=== PATIENT | male | born 1980 | race Two or more races ===

== ENCOUNTER → 2024-09-12 | Outpatient (CLI) | payer BC, SELFPAY ==
[2024-09-12 14:44] LABS: Basophils # (Auto) 0.1 Thou/mm3 (0.0-0.2); Basophils % (Auto) 1 % (0-2.5); Eosinophils # (Auto) 0.1 Thou/mm3 (0.0-0.5); Eosinophils % (Auto) 1 % (0-10); Hematocrit 33.6 % (41.0-53.0); Immature Granulocytes % (Auto) 0 % (0-0); Immature Granulocytes Auto 0.02 Thou/mm3 (0.00-0.00); Lymphocytes # (Auto) 1.5 Thou/mm3 (1.0-4.8); Lymphocytes % (Auto) 19 % (10-50); Mean Corpuscular HGB Conc 29.8 g/dl (31.0-37.0); Mean Corpuscular Hemoglobin 20.6 pg (25.0-35.0); Mean Corpuscular Volume 69 fL (80-100); Monocytes # (Auto) 0.7 Thou/mm3 (0.0-0.8); Monocytes % (Auto) 9 % (0-12); Neutrophils # (Auto) 5.3 Thou/mm3 (1.8-7.7); Neutrophils % (Auto) 69 % (37-80); Nucleated Red Blood Cell % 0 /100 WBC (0); Platelet Count 484 Thou/mm3 (140-440); RDW Standard Deviation 53.8 fL (35.1-43.9); Red Blood Count 4.85 Miln/mm3 (4.50-5.90); White Blood Count 7.7 Thou/mm3 (3.8-10.6)
[2024-09-12 14:55] LABS: Alanine Aminotransferase 18 U/L (10-49); Albumin, Serum 4.8 gm/dL (3.5-5.0); Albumin/Globulin Ratio 2.1 (1.2-2.2); Alkaline Phosphatase 46 U/L (46-116); Amylase 25 U/L (30-118); Anion Gap 8 (7-16); Aspartate Amino Transferase 17 U/L (0-34); BUN/Creatinine Ratio 17 Ratio (12-20); Bilirubin,Total 0.5 mg/dL (0.3-1.2); Blood Urea Nitrogen 19 mg/dL (9-23); Calcium 9.8 mg/dL (8.3-10.6); Calcium (Corrected) 9.8 mg/dL (8.5-10.1); Carbon Dioxide 30.5 mMol/L (20.0-31.0); Chloride 100 mMol/L (98-107); Creatinine (Component) 1.1 mg/dL (0.6-1.3); Globulin 2.3 gm/dL (2.3-3.5); Glucose 115 mg/dL (74-106); Lipase 33 U/L (12-53); Osmolality,Calculated 278 (275-295); Potassium 3.7 mMol/L (3.4-5.1); Sodium 138 mMol/L (136-145); Total Protein 7.1 gm/dL (5.7-8.2); eGFR > 60 See Note
[2024-09-12 15:29] LABS: Ferritin 3 ng/mL (10.5-307.3)
[2024-09-12 15:40] LABS: Iron 16 mcg/dL (65-175)
== END | disposition home or self-care (01) ==
LOC: COPL 13:47
PROVIDERS: PCP Physician Assistant; Referring Provider Physician Assistant; Visit Provider Physician Assistant
DX: R10.9 Unspecified abdominal pain (principal); K92.0 Hematemesis; K21.9 Gastro-esophageal reflux disease without esophagitis; D50.9 Iron deficiency anemia, unspecified
CPT/HCPCS: 36415; 80053; 82150; 82728; 83013; 83014; 83540; 83690; 85025

== ENCOUNTER → 2024-09-15 | Outpatient (CLI) | payer BC, SELFPAY ==
[2024-09-15 17:59] LABS: Urea Breath Test Positive (Negative)
== END | disposition home or self-care (01) ==
LOC: COPL 14:58
PROVIDERS: PCP Physician Assistant; Referring Provider Physician Assistant; Visit Provider Physician Assistant
DX: R10.9 Unspecified abdominal pain (principal); K92.0 Hematemesis; K21.9 Gastro-esophageal reflux disease without esophagitis; D50.9 Iron deficiency anemia, unspecified
CPT/HCPCS: 83013; 83014

== ENCOUNTER → 2024-09-15 | Outpatient (CLI) | payer BC, SELFPAY ==
--- NOTE | 2024-09-15 16:00 | XR_ITS ---
Examination: CT abdomen and pelvis without contrast. Coronal 3-D reconstructions. Sagittal 2-D reconstructions. Date and time of exam:September 15, 2024 1555 hrs. Indications: Right upper abdominal pain beginning one month ago CTDI: vol (mGy): 10.4 DLP: (mGycm): 658 Technique: Axial images of the abdomen have been obtained, 3 mm slice thickness Intravenous contrast material has not been administered. Low dose protocols were performed. One or more of the following dose reduction techniques were used; automated exposure control, adjustment of the mA and/or KV according to patient size, use of iterative reconstruction technique. Findings: Diffuse fatty infiltration throughout the liver Contracted gallbladder Spleen pancreas are not enlarged Mucosal thickening in the stomach Bilateral 1 to 3 mm renal calculi, no hydronephrosis or ureteral calculi Normal appendix 10 mm fat-containing umbilical hernia No bowel obstruction Sigmoid colon sutures Urinary bladder intact No prostatomegaly Fat-containing left inguinal hernia Advanced degenerative disc disease L5-S1 Impression: Gastritis pattern Bilateral nonobstructing renal calculi Normal appendix No bowel obstruction
== END | disposition home or self-care (01) ==
LOC: CCTX 15:43
PROVIDERS: PCP Physician Assistant; Referring Provider Physician Assistant; Visit Provider Physician Assistant
DX: N20.0 Calculus of kidney (principal)
CPT/HCPCS: 74176

== ENCOUNTER 2024-11-11 10:40 | Observation (INO) | payer BC, SELFPAY ==
[2024-11-11] VITALS (11 sets, daily range): BP systolic 126–176; BP diastolic 78–123; PULSE 71–114; RESP 16–97; TEMP 36.2–37.1; O2SAT 95–98; BMI 36.4; BMI 36.7
--- NOTE | 2024-11-11 | XR_ITS ---
Examinations: MRI Brain without intravenous contrast. MRA brain without intravenous contrast. MRA carotids without intravenous contrast 3-D vascular reconstructions Date and time of exam: November 11, 2024 1423 hours INDICATIONS: Stroke alert today, onset focal neurologic deficit including dizziness blurred vision unsteady gait Technique: Multiple axial and sagittal images of the brain have been obtained MRA brain carotid images without contrast obtained, including 3-D postprocessing, vascular maximum intensity projection images Findings: Sellaturcica is not enlarged. The optic chiasm and infundibular stalk are not remarkable. Prepontine and interpeduncular cisterns are not enlarged. No localized enlargement of the medulla or tima. Fourth ventricle and cerebellar tonsils normal in position. Subacute hemorrhage is not seen. Fourth ventricle is midline. Mass in the cerebellopontine angle region is not evident. 7th and 8th nerve complexes exhibits symmetry. Globes are symmetrical with no retro-orbital mass. Increased white matter signal not seen Prominent mastoiditis Significant right maxillary sinusitis Diffusion-weighted images demonstrate no focus of restricted diffusion Mass-effect upon the ventricular system is not identified. MRA carotid images degraded by patient motion. MRA brain images no large vessel occlusions Impression: Negative for acute hemorrhage mass effect or midline shift No acute infarct No MR findings diagnostic for demyelinating disease No large vessel occlusions
--- NOTE | 2024-11-11 11:05 | XR_ITS ---
Examination: CTA carotids with intravenous contrast CTA brain, head with intravenous contrast. 2-D sagittal, coronal reconstructions. 3-D reconstructions. Exam date and time: November 11, 1999 2517 hours INDICATIONS: Stroke alert, onset focal neurologic deficit beginning 6:00 AM this morning CTDI: vol (mGy) 40.7 DLP: (mGycm) 490 Technique: Multiple CTA axial brain, head carotid images post intravenous contrast injection 75 cc, [id number]. 2-D sagittal, coronal reconstructions. 3-D reconstructions, 3-D post processing including vascular maximum intensity projection images. Low dose protocols were performed. One or more of the following dose reduction techniques were used; automated exposure control, adjustment of the mA and/or KV according to patient size, use of iterative reconstruction technique. Findings: No significant common carotid carotid bifurcation or internal carotid artery stenoses Dominant left vertebral artery, quite small right vertebral artery no critical stenoses in the neck No cerebral large vessel arterial occlusions or thrombus IMPRESSION: No significant neck arterial stenoses No cerebral large vessel arterial occlusions or thrombus
--- NOTE | 2024-11-11 11:05 | XR_ITS ---
Examination: CT brain head without contrast. 2-D sagittal coronal reconstructions Date and time of exam:November 11, 2024 1108 hours INDICATIONS: Stroke alert, onset focal neurologic deficit, dizziness blurred vision today CTDI: vol (mGy):55.1 DLP: (mGycm):1158 Technique: Multiple CT axial sections of the brain have been obtained, 5 mm slice thickness. Contrast has not been administered. 2-D sagittal, coronal reconstructions have been obtained Low dose protocols were performed. One or more of the following dose reduction techniques were used; automated exposure control, adjustment of the mA and/or KV according to patient size, use of iterative reconstruction technique. Findings: No significant ventricular enlargement. Intra-axial or extra-axial hemorrhage density is not seen. No mass effect or midline shift Basal cisterns are not remarkable. Fourth ventricle is midline. Cranial vault intact. Right maxillary sinusitis as Impression: Negative for acute hemorrhage, mass effect or midline shift
--- NOTE | 2024-11-11 11:05 | EKG_ITS ---
[facility] Test Date: 2024-11-11 Pat Name: AINSLEY RUIZ Department: Room: - Gender: Male [employer]: : 1980 Requested By: Jonny Villatoro Order Number: [id number] Reading MD: Jonny Villatoro Measurements Intervals [place] Rate: 96 P: 20 AL: 167 QRS: 8 QRSD: 91 T: 30 QT: 349 QTc: 442 Interpretive Statements SINUS RHYTHM No previous ECG available for comparison /store/S0/[id number]/ecg/[id number].pdf
--- NOTE | 2024-11-11 11:09 | EDNOTE_ITS ---
ED General RME/HPI General Chief complaint: Dizziness Stated complaint: Dizzy, light headed X 3 hours Time Seen by Provider: 11/11/24 11:05 Arrival date/time: 11/11/24 10:40 CC: Facial [id number] gait disturbance HPI onset at 6 AM, after he eating toast and a couple coffee while at work patient abrupt onset of complete facial numbness with pins and needle sensation. Then getting out of a vehicle at work, noticed that he had balance issues. Denies fall, states that all of the symptoms have since resolved with the exception of [id number] sensation around the mouth. Patient has a history of hypertension denies diabetes no prior history of similar events. He is awake alert oriented last known normal at 6 AM. Related Data Previous Rx's ?Medication ?Instructions ?Recorded ibuprofen 800 mg tablet 800 mg PO TID PRN pain #14 t abs 04/27/18 Allergies Allergy/AdvReac Type Severity Reaction Status Date / Time No Known Allergies Allergy Verified 11/11/24 10:44 Review of Systems Review of Systems Narrative Review of Systems: GEN: No fever, no chills, no weight loss EYES: No discharge, no visual changes, no pain HEENT: No ear pain, no congestion, no sore throat PULM: No shortness of breath, no cough, no congestion CV: No chest pain, no dyspnea on exertion, no palpitations GI: No nausea, no vomiting, no diarrhea, no pain, no constipation : No frequency, no urgency, no dysuria MUSC/SKEL: No joint pain, no back pain SKIN: No rash PSYCH: No hallucinations, no depression HEME/LYMPH: No easy bleeding or bruising tendencies NEURO: No weakness, no headache Past Medical History Past Medical History CARDIAC: Negative Congestive Heart Failure RESPIRATORY: Negative Chronic Obstructive Pulmonary Disease (COPD) GENITOURINARY: Negative Renal Disease ENDOCRINE: Negative Diabetes Mellitus Type 1 or Diabetes Mellitus Type 2 Social History SMOKING STATUS: Never smoker ED Exam Narrative Physical exam: [General: Appears not in any acute distress Head normocephalic HEENT: Eyes: Pupils are PERRLA EOMs are intact mouth pink moist membranes uvula is midline swallow symmetrical phonation is normal. All other subsystems of HEENT are within acceptable limits Neck is supple nontender, no JVD no edema Chest equal chest rise nontender to palpation Respiratory: Clear to auscultation no wheezes crackles or rubs CV: Rate rhythm is regular no murmurs rubs or clicks Abdomen is soft nontender no masses positive bowel sounds all 4 quadrants Back: No CVA tenderness no spinous process tenderness from cervical spine thoracic and lumbar spine Skin: Intact no petechiae rash induration ulceration or crepitus Extremities: Moving all extremity against resistance cap refill less than 2 seconds neurosensory intact Neuro: Awake alert oriented x3 Glascow coma 15 no focal deficits] cranial nerves II through XII are grossly intact. Course Quality Measures none Orders Category Date Time Status Bedside Blood Glucose NOW Care 11/11/24 11:05 Completed Tank Hoop Bender NOW Care 11/11/24 11:05 Active Continuous Pulse Oximetry NOW Care 11/11/24 11:05 Completed EKG (ED ONLY) *Do not use* NOW Care 11/11/24 11:05 Completed In and Out Catheter NEEDED Care 11/11/24 11:05 Active Insert IV NOW Care 11/11/24 11:05 Active NIH Stroke Scale now Care 11/11/24 11:05 Active NPO NOW Care 11/11/24 11:05 Active Nurse Swallow Screen x1 Care 11/11/24 11:05 Active Saline [Insert IV] NOW Care 11/11/24 11:11 Completed Consult to Neurology / Tele-Neurology Routine Cons 11/11/24 11:[address] angio stroke protocol Stat Exams 11/11/24 11:[address] stroke protocol Stat Exams 11/11/24 11:05 Completed EKG (ED Only) Stat Exams 11/11/24 11:05 Draft CBC Stat Lab 11/11/24 11:10 Completed Comprehensive Metabolic Panel Stat Lab 11/11/24 11:10 Completed Drug Screen,Urine Stat Lab 11/11/24 11:05 Ordered HCG Titer if Positive Stat Lab 11/11/24 11:10 Completed Magnesium Stat Lab 11/11/24 11:10 Completed Partial Thromboplastin Time Stat Lab 11/11/24 11:10 Completed Prothrombin Time with INR Stat Lab 11/11/24 11:10 Completed Troponin I Stat Lab 11/11/24 11:10 Completed Urinalysis Stat Lab 11/11/24 11:05 Ordered Urine Culture Stat Lab 11/11/24 11:05 Ordered Aspirin Med 11/11/24 12:23 Discontinued 325 mg PO X1 ONE Ondansetron Inj [Zofran Inj] Med 11/11/24 11:05 Active 4 mg IV Q4HR PRN hydrALAZINE INJ [Apresoline Inj] Med 11/11/24 11:31 Discontinued 10 mg IV X1 ONE hydrALAZINE INJ [Apresoline Inj] Med 11/11/24 11:11 Discontinued 20 mg IV X1 ONE Oxygen Delivery NOW RT 11/11/24 11:05 Completed Vital Signs Vital signs: Vital Signs Temperature 98.3 F 11/11/24 10:50 Pulse Rate 114 H 11/11/24 10:50 Respiratory Rate 20 11/11/24 10:50 Blood Pressure 170/105 H 11/11/24 10:50 Pulse Oximetry (%) 98 11/11/24 10:50 Oxygen Delivery Method Room Air 11/11/24 10:50 [facility] Patient data External records reviewed:: [facility] previous records Clinical information provided by:: patient Social determinants that could affect healthcare access:: none Patient has the following chronic illnesses:: Hypertension How is presenting disease/condition affected by chronic disease/condition?: u neffected by Evaluation data The following diagnostics were reviewed and interpreted by me:: lab results, radiology exam(s) and EKG tracing(s) Lab and/or radiology exams considered but not ordered:: EKG performed to 1210 that shows ventricular rate of 9 6 TN interval 167 QRS of 91 QTc of 402 is normal sinus rhythm. CBC shows a leukocytosis of 26,000 and H&H of 10.6 and 35.4 respectively platelets at 462 CMP shows no significant electrolyte imbalances renal impairment glucose level mildly elevated at 127 no transaminitis or T. bili elevation. CT head is negative CTA head is negative for any acute finding. Interpretation Summary: Patient's case discussed with teleneurology patient needs a further workup including MRI/MRA. Patient's case discussed with Dr. Rickey Stacy resident for Dr. Valencia who agrees to accept the patient for admission. Medications Medications considered but not ordered:: None Medication administrations:: Medication Administration History Ondansetron HCl (Ondansetron Inj 2 Mg/Ml Inj 2 Ml) 4 mg IV Q4HR PRN PRN Reason: NAUSEA OR VOMITING Stop: 12/11/24 11:04 Last Admin: 11/11/24 11:35 Dose: 4 mg Documented By: KM Discontinued Medications Aspirin (Aspirin 325 Mg Tablet) 325 mg PO X1 ONE Stop: 11/11/24 12:24 Hydralazine HCl (Hydralazine Inj 20 Mg/Ml Vial) 20 mg IV X1 ONE Stop: 11/11/24 11:12 Last Admin: 11/11/24 11:37 Dose: Not Given Documented By: KAVEH Non-Admin Reason: Duplicate Medication on eMAR Hydralazine HCl (Hydralazine Inj 20 Mg/Ml Vial) 10 mg IV X1 ONE Stop: 11/11/24 11:32 Last Admin: 11/11/24 11:37 Dose: 10 mg Documented By: KAVEH None Consultations Consultation(s) initiated? (list below): Yes Diagnosis Differential Diagnosis ED Complaint MDM: CVA TIA hypertensive emergency Most likely diagnosis given after review of the tests above:: CVA Admission Indicated Admission indicated?: indicated Explain why admission is indicated or not indicated:: Further medical management Admission Request Was there a request for admission?: No Disposition Plan Disposition Plan: Admit Medical Decision Making Differential Diagnosis Differential Diagnosis: CVA TIA hypertensive emergency Lab Data 11/11/24 11:10 11/11/24 11:10 Labs: Lab Results 11/11/24 Range/Units 11:10 WBC 26.4 H (3.8-10.6) Thou/mm3 RBC 5.02 (4.50-5.90) Miln/mm3 Hgb 10.6 L (13.5-16.0) g/dL Hct 35.4 L (41.0-53.0) % MCV 71 L (80-100) fL MCH 21.1 L (25.0-35.0) pg MCHC 29.9 L (31.0-37.0) g/dl RDW Std Deviation 46.5 H (35.1-43.9) fL Plt Count 462 H (140-440) Thou/mm3 Neut % (Auto) 90 H (37-80) % Lymph % (Auto) 3 L (10-50) % [place] % (Auto) 6 (0-12) % Eos % (Auto) 1 (0-10) % Baso % (Auto) 0 (0-2.5) % Neut # (Auto) 23.7 H (1.8-7.7) Thou/mm3 Lymph # (Auto) 0.7 L (1.0-4.8) Thou/mm3 [place] # (Auto) 1.6 H (0.0-0.8) Thou/mm3 Eos # (Auto) 0.2 (0.0-0.5) Thou/mm3 Baso # (Auto) 0.1 (0.0-0.2) Thou/mm3 Immature Gran # (Auto) 0.16 H (0.00-0.00) Thou/mm3 Absolute Nucleated RBC 0.00 (0.00-0.00) Thou/mm3 Immature Gran % 1 H (0-0) % Nucleated RBC % 0 (0) /100 WBC PT 10.4 (9.0-12.2) Seconds INR 0.9 (0.9-1.3) APTT 26.8 (22.0-36.0) Seconds Sodium 137 (136-145) mMol/L Potassium 4.2 (3.4-5.1) mMol/L Chloride 102 (98-107) mMol/L Carbon Dioxide 24.7 (20.0-31.0) mMol/L Anion Gap 10 (7-16) BUN 17 (9-23) mg/dL Creatinine 0.8 (0.6-1.3) mg/dL Estim Creat Clear Calc 147.3 (>60) mL/min eGFR > 60 (60 - ) See Note BUN/Creatinine Ratio 21 H (12-20) Ratio Glucose 127 H (74-106) mg/dL Calculated Osmolality 277 (275-295) Calcium 9.0 (8.3-10.6) mg/dL Corrected Calcium 9.0 (8.5-10.1) mg/dL Magnesium 2.0 (1.6-2.6) mg/dL Total Bilirubin 0.3 (0.3-1.2) mg/dL AST 16 (0-34) U/L ALT 15 (10-49) U/L Alkaline Phosphatase 46 (46-116) U/L Troponin I < 0.002 (0.0-0.045) ng/mL Total Protein 7.4 (5.7-8.2) gm/dL Albumin 4.7 (3.5-5.0) gm/dL Globulin 2.7 (2.3-3.5) gm/dL Albumin/Globulin Ratio 1.7 (1.2-2.2) HCG (Qual) Negative Discharge Plan Plan Patient Disposition: Other Care w/in Hosp ([facility]) Prescriptions/Referrals Prescriptions/Med Rec: No Action ibuprofen 800 mg tablet 800 mg PO TID PRN (Reason: pain) Qty: 14 0RF Problem List Clinical Impression: CVA (cerebrovascular accident) Patient/Caregiver Discharge Instructions Print Language: Albanian Stand Alone Forms: Paty Award Info., Patient Portal Info Letter PA/LOG SCALER Supervising Physician PA/LOG SCALER Supervising Physician: Jonny Tanner ENP
[2024-11-11 11:22] LABS: Basophils # (Auto) 0.1 Thou/mm3 (0.0-0.2); Basophils % (Auto) 0 % (0-2.5); Eosinophils # (Auto) 0.2 Thou/mm3 (0.0-0.5); Eosinophils % (Auto) 1 % (0-10); Hematocrit 35.4 % (41.0-53.0); Hemoglobin 10.6 g/dL (13.5-16.0); Immature Granulocytes % (Auto) 1 % (0-0); Immature Granulocytes Auto 0.16 Thou/mm3 (0.00-0.00); Lymphocytes # (Auto) 0.7 Thou/mm3 (1.0-4.8); Lymphocytes % (Auto) 3 % (10-50); Mean Corpuscular HGB Conc 29.9 g/dl (31.0-37.0); Mean Corpuscular Hemoglobin 21.1 pg (25.0-35.0); Mean Corpuscular Volume 71 fL (80-100); Monocytes # (Auto) 1.6 Thou/mm3 (0.0-0.8); Monocytes % (Auto) 6 % (0-12); Neutrophils # (Auto) 23.7 Thou/mm3 (1.8-7.7); Neutrophils % (Auto) 90 % (37-80); Nucleated Red Blood Cell % 0 /100 WBC (0); Platelet Count 462 Thou/mm3 (140-440); RDW Standard Deviation 46.5 fL (35.1-43.9); Red Blood Count 5.02 Miln/mm3 (4.50-5.90); White Blood Count 26.4 Thou/mm3 (3.8-10.6)
--- NOTE | 2024-11-11 11:25 | PC.NURSE ---
Patient back from ct and hooked up to cm, patient alert and oriented x 3, speech clear, moving all extremities.
--- NOTE | 2024-11-11 11:29 | PC.NURSE ---
Dr. Dowell, teleneurologist evaluating patient.
[2024-11-11] MEDS: ONDANSETRON INJ 2 MG/ML INJ 2 ML 4 MG IV (11:35)
--- NOTE | 2024-11-11 11:35 | PC.NURSE ---
informed Dr. Aceves, provider ordered hydralizine 20mg iv x 1, Per. Dr. Aceves only give 10mg hydralazine x 1.
[2024-11-11] MEDS: hydrALAZINE INJ 20 MG/ML VIAL 10 MG IV (11:37)
[2024-11-11 11:38] LABS: Alanine Aminotransferase 15 U/L (10-49); Albumin, Serum 4.7 gm/dL (3.5-5.0); Albumin/Globulin Ratio 1.7 (1.2-2.2); Alkaline Phosphatase 46 U/L (46-116); Anion Gap 10 (7-16); Aspartate Amino Transferase 16 U/L (0-34); BUN/Creatinine Ratio 21 Ratio (12-20); Bilirubin,Total 0.3 mg/dL (0.3-1.2); Blood Urea Nitrogen 17 mg/dL (9-23); Carbon Dioxide 24.7 mMol/L (20.0-31.0); Chloride 102 mMol/L (98-107); Creatinine (Component) 0.8 mg/dL (0.6-1.3); Estimated Creatinine Clearance 147.3 mL/min (>60); Globulin 2.7 gm/dL (2.3-3.5); Glucose 127 mg/dL (74-106); Osmolality,Calculated 277 (275-295); Potassium 4.2 mMol/L (3.4-5.1); Sodium 137 mMol/L (136-145); Total Protein 7.4 gm/dL (5.7-8.2); Troponin I < 0.002 ng/mL (0.0-0.045); eGFR > 60 See Note
[2024-11-11 11:40] LABS: INR 0.9 (0.9-1.3); Partial Thromboplastin Time 26.8 Seconds (22.0-36.0); Prothrombin Time 10.4 Seconds (9.0-12.2)
--- NOTE | 2024-11-11 11:40 | PC.NURSE ---
Per Dr. Paez, teleneurologist patient not a candidate for Tenecteplace administration. Patient updated on plan of care, daughter at bedside, patient has no other needs at this time.
--- NOTE | 2024-11-11 11:54 | PD.TNEURO ---
Tele Neuro Consultation Consultation Date 11/11/24 Most Recent Vital Signs Last Vital Signs Temp 98.3 F 11/11/24 10:50 Pulse 106 H 11/11/24 11:38 Resp 20 11/11/24 10:50 BP 163/123 H 11/11/24 11:37 Pulse Ox 98 11/11/24 10:50 O2 Del Method Room Air 11/11/24 10:50 Laboratory-Coagulation Panel PT 10.4 Seconds (9.0-12.2) 11/11/24 11:10 INR 0.9 (0.9-1.3) 11/11/24 11:10 APTT 26.8 Seconds (22.0-36.0) 11/11/24 11:10 Consultation Narrative [facility] Tele[facility]urology Consult Services Patient Name:???[place] Date of :???1980 Identification Number:??? Date of Service:???11/11/2024 11:12:52 Diagnosis:?I63.89 - Cerebrovascular accident (CVA) due to other mechanism (HCCC) Impression: ?Hypertensive encephalopathy vs posterior circulation infarct/TIA. Symptoms have now improved. Stat NCCT and CTA H&N without acute changes, lvo or thormbus. Recommend further evaluation with MRI brain. Asa 325 mg if Hgb is >10. Our recommendations are outlined below. Recommendations: ? Stroke/Telemetry Floor ? Neuro Checks ? Bedside Swallow Eval ? DVT Prophylaxis ? IV Fluids, Normal Saline ? Head of Bed 30 Degrees ? Euglycemia and Avoid Hyperthermia (PRN Acetaminophen) Sign Out: ? Discussed with Emergency Department Provider Advanced Imaging:CTA Head and Neck Completed. LVO:No Patient in not a candidate for CARLITOS Metrics: Last Known Well: 11/11/2024 06:00:00 Dispatch Time: 11/11/2024 11:12:52 Arrival Time: 11/11/2024 10:40:00 Initial Response Time: 11/11/2024 11:14:25Symptoms: cross eyed, dizziness, gait instability, lightheaded, emesis 6 am - vision blurry, cross eyed, not bin normal since, dizzy, . Initial patient interaction: 11/11/2024 11:22:27 NIHSS Assessment Completed: 11/11/2024 11:29:31Plyndsey is not a candidate for Thrombolytic. Thrombolytic Medical Decision: 11/11/2024 11:29:32Plyndsey was not deemed candidate for Thrombolytic because of following reasons: LKW outside 4.5 hr window. . I personally Reviewed the CT Head and it Showed no acute change. Primary Provider Notified of Diagnostic Impression and Management Plan on: 11/11/2024 11:44:49 History of Present Illness:Patient is a 44 year old Male. Patient was brought by private transportation with symptoms of cross eyed, dizziness, gait instability, lightheaded, emesis 6 am - vision blurry, cross eyed, not bin normal since, dizzy, . This is a 44 year old right handed man who presents for after acute onset of several complaints this morning. He woke up around 1:45 am to go to work this morning. He arrived at work without difficulty. At 6 am he went cross-eyed, and felt lightheaded with gait instability. His face started to tingle shortly afterward. Around 8 am he walked to his truck had an unsteady walk prompting him to seek medical attention. He had several bouts of emesis including one in the CT scanner. No prior history of similar complaints. Most of his symptoms have resolved now. History of blood in his stool last year with severe anemia requiring a transfusion. Hgb dropped to 6.2. ? Past Medical History: ?There is no history of Hypertension ?There is no history of Diabetes Mellitus ?There is no history of Stroke Medications: No Anticoagulant use? No Antiplatelet use Reviewed EMR for current medications Allergies:? Reviewed Social History: Drug Use: No Family History: There is no family history of premature cerebrovascular disease pertinent to this consultation ROS : 14 Points Review of Systems was performed and was negative except mentioned in HPI. Past Surgical History: There Is No Surgical History Contributory To Today?s Visit ? Examination: BP(174/114),?Pulse(114),?Blood Glucose(155) 1A: Level of Consciousness - Alert; keenly responsive?+ 0 1B: Ask Month and Age - Both Questions Right?+ 0 1C: Blink Eyes & Squeeze Hands - Performs Both Tasks?+ 0 2: Test Horizontal Extraocular Movements - Normal?+ 0 3: Test Visual Marquez - No Visual Loss?+ 0 4: Test Facial Palsy (Use Grimace if Obtunded) - Normal symmetry?+ 0 5A: Test Left Arm Motor Drift - No Drift for 10 Seconds?+ 0 5B: Test Right Arm Motor Drift - No Drift for 10 Seconds?+ 0 6A: Test Left Leg Motor Drift - No Drift for 5 Seconds?+ 0 6B: Test Right Leg Motor Drift - No Drift for 5 Seconds?+ 0 7: Test Limb Ataxia (FNF/Heel-Tanner) - No Ataxia?+ 0 8: Test Sensation - Normal; No sensory loss?+ 0 9: Test Language/Aphasia - Normal; No aphasia?+ 0 10: Test Dysarthria - Normal?+ 0 11: Test Extinction/Inattention - No abnormality?+ 0 NIHSS Score:?0 Pre-Morbid Modified [place] Scale:0 Points = No symptoms at all Spoke with :?Jonny Tanner This consult was conducted in real time using interactive audio and video technology. Patient was informed of the technology being used for this visit and agreed to proceed. Patient located in hospital and provider located at home/office setting. Patient is being evaluated for possible acute neurologic impairment and high probability of imminent or life-threatening deterioration. I spent total of 37 minutes providing care to this patient, including time for face to face visit via telemedicine, review of medical records, imaging studies and discussion of findings with providers, the patient and/or family. Dr Naif Dowell [facility] For Inpatient follow-up with [facility] physician please call [facility] at . As we are not an outpatient service for any post hospital discharge needs please contact the hospital for assistance. If you have any questions for the [facility] physicians or need to reconsult for clinical or diagnostic changes please contact us via [facility] at .
[2024-11-11 11:59] LABS: HCG Titer if Positive Negative
--- NOTE | 2024-11-11 12:09 | PC.NURSE ---
Patient states he has been taking Clarithromycin 500 mg bid, Amoxicillin 1000mg bid and Lansoprozole 30mg 1 qd since sunday and last dose he took was last night at [facility]. 5pm, patient states PCP gave medication to him for possible stomach infection patient also states that PCP told him that it could be the reason why he has bleeding in his stomach, patient states he has been dealing with stomach issues for 3 years, in addition, patient states along with feeling dizziness and blurred vision since 0600am he also was having nausea and vomiting between 0600 and 0930 am more than 10 times, patient denies blood in emesis, and no blood or dark stools. Currenty patient denies n/vomiting, denies pain, skin is warm dry and pink, call light within reach.
[2024-11-11] MEDS: Aspirin 325 MG TABLET PO (12:46)
[2024-11-11] MEDS: SODIUM CHLORIDE 0.9% 1000 ML 1,000 ML 100 ML IV (13:51)
[2024-11-11 14:16] LABS: Collection Type, Urine Clean Catch; Squamous Epithelial Cell,Urine 0 /hpf (0-5)
[2024-11-11 14:32] LABS: Bilirubin,Urine Negative (Negative); Blood,Urine Negative (Negative); Clarity,Urine Clear (Clear/Hazy); Color,Urine Lt-Yellow (Lt Yel-Yel); Glucose, Urine Negative (Negative); Ketones,Urine Negative (Negative); Leukocyte Esterase,Urine Negative (Negative); Nitrite,Urine Negative (Negative); PH,Urine 6.5 (5.0-7.0); Protein,Urine Negative (Neg - Trace); RBC,Urine 2 /hpf (0-3); Urobilinogen,Urine Negative mg/dL (0.0-1.0); WBC,Urine 1 /hpf (0-5)
[2024-11-11 14:34] LABS: Specific Gravity,Urine 1.015 (1.001-1.035)
[2024-11-11 14:40] LABS: Amphetamine/Methamp Scrn,U Negative (Negative); Barbiturate Screen,Urine Negative (Negative); Benzodiazepines Screen,Urine Negative (Negative); Benzoylecgonine Screen, Ur Negative (Negative); Fentanyl Screen,Urine Negative (Negative); Opiate Screen,Urine Negative (Negative); THC Screen,Urine Negative (Negative)
--- NOTE | 2024-11-11 15:10 | PD.RESHP ---
Documentation for date of: 11/11/24 HPI History of Present Illness Chief complaint: mouth numbness, vomiting History of present illness: Erwin Gray is 44 yr male with PMH of testicular cancer s/p orchiectomy, diverticulitis s/p partial colectomy, iron deficiency anemia, and HTN presented to ED after experiencing perioral numbness tingling, multiple episodes of emesis this morning. 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 Also stated that he had a little bit of difficulty in his balance. Daughter and the patient went to an urgent care who then sent them to [facility] ED. Patient denies experiencing episode like this previously. He denies any changes in his diet, no headache, no chest pain, no dysuria, or abdominal pain. Denies any upper or lower extremity weakness, no slurred speech. He follows [employer] or PA [facility]. Patient states that blood pressure typically ranges 150?160 systolic while on lisinopril 40 mg daily. There has been no dose adjustment for couple years now. In ED, vitals showed hypertension 170/105, tachycardia 114, no fever. Labs reveal leukocytosis 26, Hb 10.6, MCV 71, all other electrolytes unremarkable. Teleneuro was consulted after stroke alert called. Patient is out of window for thrombolytics. NIHSS score 13. CT head negative for acute hemorrhage. CTA head/neck negative for stenosis or occlusions. MRI head negative for any occlusions, hemorrhage, infarct. Patient was given aspirin 325 mg and admitted for workup of TIA. PMH: as noted above PSH: Partial colectomy 2013, back surgery 2007, right orchiectomy 2012, bilateral carpal tunnel repair 2023, head injury surgery 2015. Social: Denies smoking, drug use. Had increased amount of alcohol intake past 6 months due to of brother. Otherwise now has cut back on drinking significantly. Job entails working with heavy machinery FAM Hx: Father alive, aneurysm. Mother alive, diabetes Allergies: none Meds: Ferrous sulfate 325 mg, lisinopril 40 mg daily Review of Systems Review of Systems Systems Reviewed: All systems reviewed, normal except as documented Exam Vital Signs Temp Pulse Resp BP Pulse Ox O2 Del Method 98.7 F 92 18 138/87 H 98 Room Air 02/18/25 14:14 11/11/24 14:14 11/11/24 14:14 11/11/24 14:14 11/11/24 14:14 11/11/24 14:14 Narrative Exam General: Middle-aged male, comfortable, no acute distress, cooperative HEENT: NCAT, No JVD noted. Mucosa moist. Pupils are equal and reactive to light bilaterally Cardiovascular: Normal S1 and S2. Regular rate and rhythm. Respiratory: Lungs are clear to auscultation bilaterally. No wheezing or crackles heard. Abdomen: Soft, nontender, not distended, normal bowel sounds. Skin: Warm to touch, dry, no rashes noted Musculoskeletal: No gross injuries. Able to move all 4 extremities. No pitting edema Neuro: Alert and oriented x3. No focal neuro deficits. Full strength and movement upper and lower extremities. Psych: Normal affect and mood Results: Labs 11/12/24 05:04 11/12/24 05:04 Labs: Short CBC 11/11/24 Range/Units 11:10 WBC 26.4 H (3.8-10.6) Thou/mm3 Hgb 10.6 L (13.5-16.0) g/dL Hct 35.4 L (41.0-53.0) % Plt Count 462 H (140-440) Thou/mm3 BMP 11/11/24 11:10 Sodium 137 Potassium 4.2 Chloride 102 Carbon Dioxide 24.7 BUN 17 Creatinine 0.8 Glucose 127 H Calcium 9.0 Cardiac Enzymes 11/11/24 Range/Units 11:10 Troponin I < 0.002 (0.0-0.045) ng/mL Liver Function 11/11/24 Range/Units 11:10 Total Bilirubin 0.3 (0.3-1.2) mg/dL AST 16 (0-34) U/L ALT 15 (10-49) U/L Alkaline Phosphatase 46 (46-116) U/L Albumin 4.7 (3.5-5.0) gm/dL Urine 11/11/24 Range/Units 14:03 Urine Color Lt-Yellow (Lt Yel-Yel) Urine Clarity Clear (Clear/Hazy) Urine pH 6.5 (5.0-7.0) Ur Specific [place] 1.015 (1.001-1.035) Urine Protein Negative (Neg - Trace) Urine Glucose (UA) Negative (Negative) Quality Measures Quality Measures none Medications Home Medications and Allergies Home Medications ?Medication ?Instructions ?Recorded ?Confirmed ?Type amoxicillin 500 mg capsule 1,000 mg PO Q12H 11/11/24 11/11/24 History clarithromycin 500 mg tablet 1,000 mg PO Q12H 11/11/24 11/11/24 History lansoprazole 30 mg capsule,delayed 30 mg PO Q12H stomach 11/11/24 11/11/24 History release lisinopril 40 mg tablet 40 mg PO .qd 11/11/24 11/11/24 History Allergies Allergy/AdvReac Type Severity Reaction Status Date / Time No Known Allergies Allergy Verified 11/11/24 10:44 Visit Medications Acetaminophen (Acetaminophen 325 Mg Tablet) 650 mg PO Q6H PRN PRN Reason: Fever >100.3 or pain Stop: 12/11/24 13:21 Sodium Chloride (Ns) 1,000 mls @ 100 mls/hr IV .Q10H ONE Stop: 11/11/24 23:32 Last Admin: 11/11/24 13:51 Dose: 100 mls/hr Ondansetron HCl (Ondansetron Inj 2 Mg/Ml Inj 2 Ml) 4 mg IV Q4HR PRN PRN Reason: NAUSEA OR VOMITING Stop: 12/11/24 11:04 Last Admin: 11/11/24 11:35 Dose: 4 mg Sennosides (Senna Tablet) 1 tab PO QDAY PRN; Protocol PRN Reason: constipation Stop: 12/12/24 08:59 Discontinued Medications Aspirin (Aspirin 325 Mg Tablet) 325 mg PO X1 ONE Stop: 11/11/24 12:24 Last Admin: 11/11/24 12:46 Dose: 325 mg Hydralazine HCl (Hydralazine Inj 20 Mg/Ml Vial) 20 mg IV X1 ONE Stop: 11/11/24 11:12 Last Admin: 11/11/24 11:37 Dose: Not Given Hydralazine HCl (Hydralazine Inj 20 Mg/Ml Vial) 10 mg IV X1 ONE Stop: 11/11/24 11:32 Last Admin: 11/11/24 11:37 Dose: 10 mg Assessment & Plan Plan Erwin Gray is 44 yr male with PMH of testicular cancer s/p orchiectomy, diverticulitis s/p partial colectomy, iron deficiency anemia, and HTN presented to ED after experiencing perioral numbness tingling, multiple episodes of emesis this morning. 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 Patient was given aspirin 325 mg and admitted for workup of TIA. #Transient ischemic attack CVA was ruled out after head imaging was negative for infarts or hemorrhage on MRI. CTA head and neck also negative for stenosis or occlusion. All symptoms have since resolved. ?Dr. Ramey was consulted recommendations pending. ?aspirin 81 mg daily ?Physical therapy/speech pathology referral pending ? N.p.o. until patient passes bedside swallow screen ? Head of bed elevation 30 degrees ? Continue permissive hypertension for 24 hours as per neurorecommendations ? 10 mg IV labetalol every 4 hours as needed if BP 220/120 ? Med recs pending--restart atorvastatin 40 mg p.o. daily once passed swallow screen ?Lipid panel pending -NS maintenance at 100 cc/hr #Leukocytosis Likely reactive in stress setting. No source of infection. WBC 26 on admission. -daily CBC #Hx Iron deficiency anemia Hb 10.6, MCV 71 on admission. -ferrous sulfate 325 mg -daily CBC #hx HTN Poorly controlled with systolics 150-160 at home. -lisinopril 40 mg daily after 24 hrs Health maintenance: Dispo: tele, TIA workup DVT prophylaxis: SCDs CODE STATUS: Full code Diet: cardiac consistent The patient's management plan was discussed with my attending physician Dr. Davis. Briana Eubanks, PGY-1 Attending Provider Attestation/Addendum I reviewed labs, imaging, EKG, home medications and prior available records. Face to face evaluation was performed by me. I have personally examined the patient and discussed assessment and plan with the IM team. I reviewed the resident note and agree with the plan with exceptions as below. CVA symptoms Bilateral face numbness Nausea and vomiting Leukocytosis Microcytic anemia Symptoms are more likely related to acute gastroenteritis and severe vomiting CT head is negative for acute changes Started aspirin IV fluids Management of nausea/vomiting as needed Every 4 hour neurochecks Obtain brain MRI Trend WBC Monitor H&H
--- NOTE | 2024-11-11 16:55 | PC.NURSE ---
Patient sitting up in gurney, no distress noted, patient alert and oriented x, skin warm dry and pink, patient denies pain, patient admitted and is awaiting bed on floor, patient has no other needs at this time, call light within reach, daughter at bedside.
--- NOTE | 2024-11-11 21:40 | VVPN_ITS ---
Telemedicine visit statement This visit was conducted with the use of phone was obtained on 11/11/24 at 2140. Documentation for date of: 11/11/24 Subjective Subjective Interval history: Patient is in MedSurg. No symptoms reported. His paresthesias have completely resolved Virtual exam Vital Signs Temp Pulse Resp BP Pulse Ox O2 Del Method 98 F 78 22 H 142/88 H 97 Room Air 11/11/24 19:43 11/11/24 19:43 11/11/24 19:43 11/11/24 19:43 11/11/24 19:43 11/11/24 19:43 Objective Labs 11/12/24 05:04 11/12/24 05:04 Labs: Laboratory Results - last 24 hr 11/11/24 11/11/24 11:10 14:03 WBC 26.4 H RBC 5.02 Hgb 10.6 L Hct 35.4 L MCV 71 L MCH 21.1 L MCHC 29.9 L RDW Std Deviation 46.5 H Plt Count 462 H Neut % (Auto) 90 H Lymph % (Auto) 3 L [place] % (Auto) 6 Eos % (Auto) 1 Baso % (Auto) 0 Neut # (Auto) 23.7 H Lymph # (Auto) 0.7 L [place] # (Auto) 1.6 H Eos # (Auto) 0.2 Baso # (Auto) 0.1 Immature Gran # (Auto) 0.16 H Absolute Nucleated RBC 0.00 Immature Gran % 1 H Nucleated RBC % 0 PT 10.4 INR 0.9 APTT 26.8 Sodium 137 Potassium 4.2 Chloride 102 Carbon Dioxide 24.7 Anion Gap 10 BUN 17 Creatinine 0.8 Estim Creat Clear Calc 147.3 eGFR > 60 BUN/Creatinine Ratio 21 H Glucose 127 H Calculated Osmolality 277 Calcium 9.0 Corrected Calcium 9.0 Magnesium 2.0 Total Bilirubin 0.3 AST 16 ALT 15 Alkaline Phosphatase 46 Troponin I < 0.002 Total Protein 7.4 Albumin 4.7 Globulin 2.7 Albumin/Globulin Ratio 1.7 Ur Collection Type Clean Catch Urine Color Lt-Yellow Urine Clarity Clear Urine pH 6.5 Ur Specific [place] 1.015 Urine Protein Negative Urine Glucose (UA) Negative Urine Ketones Negative Urine Blood Negative Urine Nitrite Negative Urine Bilirubin Negative Urine Urobilinogen (Auto) Negative Ur Leukocyte Esterase Negative Urine RBC 2 Urine WBC 1 Ur Squamous Epith Cells 0 Urine Bacteria None Urine Opiates Screen Negative Urine Fentanyl Screen Negative Ur Barbiturates Screen Negative U Amphetamin/Meth Scrn Negative U Benzodiazepines Scrn Negative U Cocaine Metab Screen Negative U Marijuana (THC) Screen Negative HCG (Qual) Negative Assessment & Plan Problem List (1) CVA (cerebrovascular accident): Status: Acute Assessment and plan: MRI brain resulted negative for acute infarction. Follow-up with the repeat labs tomorrow as the white count was really high, could be lab error. No witnessed seizures reported (2) Hypertension: Status: Chronic Assessment and plan: Continue home meds
[2024-11-11] MEDS: ATORVASTATIN CALCIUM 20 MG TABLET 40 MG PO (22:26)
[2024-11-12] VITALS: BP 133/85; PULSE 69; RESP 18; TEMP 36.2; O2SAT 99
[2024-11-12 01:45] VITALS: PULSE 78; RESP 18; RESP 96
[2024-11-12 04:00] VITALS: BP 135/86; PULSE 98; RESP 17; TEMP 36.6; O2SAT 96
[2024-11-12 05:23] LABS: Basophils % (Auto) 1 % (0-2.5); Eosinophils # (Auto) 0.3 Thou/mm3 (0.0-0.5); Eosinophils % (Auto) 4 % (0-10); Hematocrit 31.9 % (41.0-53.0); Hemoglobin 9.5 g/dL (13.5-16.0); Immature Granulocytes % (Auto) 0 % (0-0); Immature Granulocytes Auto 0.02 Thou/mm3 (0.00-0.00); Lymphocytes # (Auto) 1.4 Thou/mm3 (1.0-4.8); Lymphocytes % (Auto) 22 % (10-50); Mean Corpuscular HGB Conc 29.8 g/dl (31.0-37.0); Mean Corpuscular Volume 71 fL (80-100); Monocytes # (Auto) 0.6 Thou/mm3 (0.0-0.8); Monocytes % (Auto) 9 % (0-12); Neutrophils # (Auto) 4.2 Thou/mm3 (1.8-7.7); Neutrophils % (Auto) 64 % (37-80); Nucleated Red Blood Cell % 0 /100 WBC (0); Platelet Count 408 Thou/mm3 (140-440); RDW Standard Deviation 46.7 fL (35.1-43.9); Red Blood Count 4.52 Miln/mm3 (4.50-5.90); White Blood Count 6.5 Thou/mm3 (3.8-10.6)
[2024-11-12 05:48] LABS: Alanine Aminotransferase 12 U/L (10-49); Albumin, Serum 4.4 gm/dL (3.5-5.0); Albumin/Globulin Ratio 1.8 (1.2-2.2); Alkaline Phosphatase 39 U/L (46-116); Anion Gap 9 (7-16); Aspartate Amino Transferase 13 U/L (0-34); BUN/Creatinine Ratio 17 Ratio (12-20); Bilirubin,Total 0.6 mg/dL (0.3-1.2); Blood Urea Nitrogen 15 mg/dL (9-23); Calcium 9.1 mg/dL (8.3-10.6); Calcium (Corrected) 9.1 mg/dL (8.5-10.1); Carbon Dioxide 26.3 mMol/L (20.0-31.0); Cardiac Risk Estimate 4.5 RATIO (4.0-6.7); Chloride 103 mMol/L (98-107); Cholesterol 166 mg/dL (132-200); Creatinine (Component) 0.9 mg/dL (0.6-1.3); Estimated Creatinine Clearance 130.9 mL/min (>60); Globulin 2.4 gm/dL (2.3-3.5); Glucose 123 mg/dL (74-106); HDL Cholesterol 37 mg/dL (40-60); LDL Cholesterol,Calculated 84 mg/dL (0-130); Magnesium 2.1 mg/dL (1.6-2.6); Osmolality,Calculated 277 (275-295); Phosphorous 3.7 mg/dL (2.4-5.1); Potassium 4.4 mMol/L (3.4-5.1); Sodium 138 mMol/L (136-145); Total Protein 6.8 gm/dL (5.7-8.2); Triglycerides 223 mg/dL (30-150); eGFR > 60 See Note
[2024-11-12 06:00] VITALS: BMI 36.6
[2024-11-12 07:48] VITALS: PULSE 79
[2024-11-12 08:00] VITALS: BP 135/89; PULSE 79; RESP 16; TEMP 36.3; O2SAT 95
[2024-11-12 09:12] VITALS: PULSE 73; RESP 16; RESP 98
[2024-11-12] MEDS: ACETAMINOPHEN 325 MG TABLET 650 MG PO (10:16)
--- NOTE | 2024-11-12 14:34 | PD.RESDS ---
Planned Discharge Date 11/12/24 DS: Providers Provider Date of admission: 11/11/24 13:22 Primary care physician: Demetria Talbot PA-C Admitting Provider: Aurelio Davis MD Attending Provider on Admission: Aurelio Davis MD Consults: 11/11/24 11:05 Consult to Neurology / Tele-Neurology Routine Comment: Consulting Provider: [facility] 11/11/24 13:30 Consult to Neurology / Tele-Neurology Stat Comment: TIA workup Consulting Provider: Juan Jose Ramey 11/11/24 20:54 [facility] Referral - Knowledge Deficit Routine Comment: Positive screening for knowledge deficit needs. Attending Provider on DC: Aurelio Davis MD Discharging Provider: Aurelio Davis MD DS: Diagnosis Problem List Completed Was Problem List Reviewed/Reconciled?: Yes Hospital Course Hospital Course Hospital course: Reason for hospitalization: TIA Erwin Gray is 44 yr male with PMH of testicular cancer s/p orchiectomy, diverticulitis s/p partial colectomy, iron deficiency anemia, and HTN presented to [facility] ED on 11/11/24 after experiencing perioral numbness tingling, blurry vision, and 10 episodes of emesis in the morning while at work. Also stated that he had slight difficulty in his balance. Denied any upper or lower extremity weakness, no slurred speech. Patient was admitted for workup of stroke. In ED, symptoms had resolved. Vitals showed hypertension 170/105, tachycardia 114, no fever. Labs reveal leukocytosis (26), Hb (10.6), MCV (71). Teleneuro was consulted after stroke alert called. Patient was out of window for thrombolytics. NIHSS score 13. CT head negative for acute hemorrhage. CTA head/neck negative for stenosis or occlusions. MRI head negative for any occlusions, hemorrhage, infarct. Neurologist Dr. Ramey was consulted. Patient was started on aspirin 81mg and atorvastatin 40mg for TIA. Physical exam was negative for any new neurologic deficits. Leukocytosis resolved to 8. After permissive hypertension, BP systolic was 135-140 with lisinopril 40mg daily. Patient was counseled on diet, exercise, and importance of better BP control. Patient is now in stable condition and ready for discharge. Recommendations were given as below. Discharge Recommendations: Start taking atorvastatin 40 mg daily for stroke prevention. Start taking aspirin 81 mg daily for stroke prevention. Continue lisinopril 40 mg daily for hypertension. Please check blood pressures daily. Follow up with PCP in 1-2 weeks. Hospital Diagnoses: #Transient ischemic attack #Leukocytosis #Hx Iron deficiency anemia #hx HTN #Hx H. Pylori The patient's management plan was discussed with my attending physician Dr. Davis. Briana Eubanks MD, PGY-1 Time Spent with Patient Time attestation: Total time spent providing and/or coordinating discharge services: Time spent: Greater than 30 minutes Exam Vital Signs Temp Pulse Resp BP Pulse Ox O2 Del Method 97.3 F 73 16 135/89 H 95 Room Air 11/12/24 08:00 11/12/24 09:12 11/12/24 09:12 11/12/24 08:00 11/12/24 08:00 11/12/24 08:00 Narrative Exam General: Middle-aged male, comfortable, no acute distress, cooperative HEENT: NCAT, No JVD noted. Mucosa moist. Pupils are equal and reactive to light bilaterally Cardiovascular: Normal S1 and S2. Regular rate and rhythm. Respiratory: Lungs are clear to auscultation bilaterally. No wheezing or crackles heard. Abdomen: Soft, nontender, not distended, normal bowel sounds. Skin: Warm to touch, dry, no rashes noted Musculoskeletal: No gross injuries. Able to move all 4 extremities. No pitting edema Neuro: Alert and oriented x3. No focal neuro deficits. Full strength and movement upper and lower extremities. Psych: Normal affect and mood Discharge Plan Plan Patient Disposition: HOME (Self Care) Patient condition on transfer: Stable Prescriptions/Referrals Prescriptions/Med Rec: New atorvastatin 40 mg tablet 40 mg PO QDAY 30 Days Qty: 30 0RF aspirin 81 mg tablet,delayed release (DR/EC) 81 mg PO QDAY 30 Days Qty: 30 0RF Continued clarithromycin 500 mg tablet 1,000 mg PO Q12H Patient Comments: TAKE 1 TABLET BY MOUTH EVERY 12 HOURS FOR 10 DAYS lansoprazole 30 mg capsule,delayed release(DR/EC) 30 mg PO Q12H Patient Comments: TAKE 1 CAPSULE BY MOUTH TWICE A DAY FOR 10 DAYS amoxicillin 500 mg capsule 1,000 mg PO Q12H Patient Comments: TAKE 2 CAPS BY MOUTH TWICE A DAY 10 DAYS lisinopril 40 mg tablet 40 mg PO .qd Patient Comments: TAKE 1 TABLET BY MOUTH EVERY DAY Referrals: Talbot,Demetria, PA-C [Primary Care Provider] - Juan Jose Ramey MD [Physician] - Patient/Caregiver Discharge Instructions Other Discharge Activity Instructions:: Start taking atorvastatin 40 mg daily for stroke prevention. Start taking aspirin 81 mg daily for stroke prevention. Continue lisinopril 40 mg daily for hypertension. Please check blood pressures daily. Follow up with PCP in 1-2 weeks. Education Materials: Controlling High Blood Pressure, Hypertension Stroke Link, What Is High Blood Pressure?, Stroke Prevention Activity, Blood Pressure Check Steps, ED High Blood Pressure ... Print Language: Argentine Stand Alone Forms: [employer] Award Info., Patient Portal Info Letter, Work/Release Restrictions Discharge Order Discharge Orders: Discharge (Routine); Ordered 11/12/24 Ordered By: Briana Eubanks Quality Discharge Quality Measures VTE prophylaxis Attestestation MD Attestation I reviewed labs, imaging, EKG, home medications and prior available records. Face to face evaluation was performed by me. I have personally examined the patient and discussed assessment and plan with the IM team. I reviewed the resident note and agree with the plan with exceptions as below. CVA symptoms, possible TIA Bilateral face numbness Nausea and vomiting Leukocytosis Microcytic anemia Possible BRIT Symptoms are more likely related to TIA versus acute gastroenteritis and severe vomiting CT head is negative for acute changes MRI: Negative for acute changes Continue aspirin and atorvastatin Trend WBC: Downtrending Monitor H&H: Stable Sleep study as outpatient per nephrology recommendations. Continue use of CPAP at night. Outpatient weight management Time spent is 40 minutes. More than 50% of the time was spent on patient education and coordination of care.
--- NOTE | 2024-11-12 23:06 | ESPR_ITS ---
Documentation for date of: 11/12/24 Subjective Subjective Interval history: Patient was seen in [facility] today. No new symptoms reported. No recurrence of similar symptoms after admission. Patient does get headaches, snores at night and wakes up feeling tired and sleepy in the daytime. Exam - Neurology Vital Signs Temp Pulse Resp BP Pulse Ox O2 Del Method 97.3 F 73 16 135/89 H 95 Room Air 11/12/24 08:00 11/12/24 09:12 11/12/24 09:12 11/12/24 08:00 11/12/24 08:00 11/12/24 08:00 Narrative Exam GENERAL APPEARANCE: Well-developed, obese built in no acute distress. HEENT: Normocephalic, atraumatic, extraocular movements intact. Pupils: Equal reacting to light and accommodation NECK: Supple, no JVD or bruits. CARDIOVASULAR: Heart: S1, S2 heard, regular without S3-S4 or murmur no rubs or gallops. LUNGS/CHEST: Clear to auscultation bilaterally. No rails, rhonchi, or wheezing. Normal inspection. ABDOMEN: Soft, nontender, with normal bowel sounds. No pulsatile masses. No rebound, rigidity, or guarding. Normal inspection and palpation. EXTREMITIES: Normal inspection and palpation. No edema, clubbing or cyanosis. SKIN: Warm and dry without rashes. Normal inspection. MUSCULOSKELETAL: No cervical, thoracic, lumbar or midline bony tenderness. Normal inspection. NEURO: Alert, awake and oriented x3. Cranial nerves: II through XII grossly intact. Speech and language: Normal with no dysarthria or dysphasia. Motor system: Tone and bulk: Normal: Strength: 5 out of 5 in all 4 extremities; No pronator drift noted. Deep tendon reflexes: 2+ bilaterally symmetrical. Plantar reflex: Downgoing bilaterally. Sensory system: Intact to all modalities of sensation bilaterally. Coordination: Intact to [id number] and [id number] test bilaterally. No ataxia, no dysmetria, or dysdiadochokinesia noted. No intention tremors noted. Gait: Normal. Toe, heel, tandem walk all are normal. Romberg: Negative. No signs of meningeal irritation noted. PSYCHIATRIC: Normal mood and affect. Objective Labs 11/12/24 05:04 11/12/24 05:04 Labs: Laboratory Results - last 24 hr 11/12/24 05:04 WBC 6.5 D RBC 4.52 Hgb 9.5 L Hct 31.9 L MCV 71 L MCH 21.0 L MCHC 29.8 L RDW Std Deviation 46.7 H Plt Count 408 D Neut % (Auto) 64 Lymph % (Auto) 22 [place] % (Auto) 9 Eos % (Auto) 4 Baso % (Auto) 1 Neut # (Auto) 4.2 Lymph # (Auto) 1.4 [place] # (Auto) 0.6 Eos # (Auto) 0.3 Baso # (Auto) 0.0 Immature Gran # (Auto) 0.02 H Absolute Nucleated RBC 0.00 Immature Gran % 0 Nucleated RBC % 0 Sodium 138 Potassium 4.4 Chloride 103 Carbon Dioxide 26.3 Anion Gap 9 BUN 15 Creatinine 0.9 Estim Creat Clear Calc 130.9 eGFR > 60 BUN/Creatinine Ratio 17 Glucose 123 H Calculated Osmolality 277 Calcium 9.1 Corrected Calcium 9.1 Phosphorus 3.7 Magnesium 2.1 Total Bilirubin 0.6 AST 13 ALT 12 Alkaline Phosphatase 39 L Total Protein 6.8 Albumin 4.4 Globulin 2.4 Albumin/Globulin Ratio 1.8 Triglycerides 223 H Cholesterol 166 LDL Cholesterol, Calc 84 HDL Cholesterol 37 L Cholesterol/HDL Ratio 4.5 Assessment & Plan Assessment and plan (1) CVA (cerebrovascular accident): Status: Ruled-out Assessment and plan: Reassurance given to the patient regarding the negative MRI brain and echocardiogram. Patient could have had a brainstem TIA/complicated migraine. Advised to continue with aspirin and statin and keep the blood pressure better controlled. Patient is stable for discharge home and I will see him back in 2 weeks (2) Hypertension: Status: Chronic Assessment and plan: Advised about the importance of lifestyle changes with diet and exercise in addition (3) Obstructive sleep apnea: Status: Chronic Assessment and plan: Patient would need workup as an outpatient with a sleep study as correction of sleep apnea will help with the blood pressure control
== END 2024-11-12 12:27 | disposition home or self-care (01) ==
LOC: SERX 13:21 → SERHOLD 13:52 → S3NX 11-12 07:56
PROVIDERS: Registered Nurse General Practice; Admitting Provider Student in an Organized Health Care Education/Training Program; Emergency Provider Emergency Medicine; PCP Physician Assistant; Visit Provider Student in an Organized Health Care Education/Training Program
DX: G45.9 Transient cerebral ischemic attack, unspecified (principal); I10 Essential (primary) hypertension; G47.33 Obstructive sleep apnea (adult) (pediatric); Z86.19 Personal history of other infectious and parasitic diseases; D50.9 Iron deficiency anemia, unspecified; D72.829 Elevated white blood cell count, unspecified
CPT/HCPCS: 36415; 70450; 70496; 70498; 70544; 80053; 80061; 80307; 81001; 83735; 84100; 84484; 84703; 85025; 85610; 85730; 87086; 93005; 96374; 99285; A4649; G0378; J0360; J2405; J7030; Q9967; A9270